=== PATIENT | male | born 1950 | race Caucasian/White ===

== ENCOUNTER 2021-06-22 10:52 | Day surgery (SDC) | payer BC ==
[2021-06-22] MEDS ORDERED: LACTATED RINGERS 1,000 ML IV ONE ×2 (11:59→13:13)
[2021-06-22] MEDS ORDERED: fentaNYL 250 MCG/5 ML VIAL ONE (12:33)
[2021-06-22] MEDS ORDERED: MIDAZOLAM 2 MG/2 ML VIAL ONE ×2 (12:33→12:51)
[2021-06-22 13:47] VITALS: BP 133/81
== END 2021-06-22 10:53 | disposition home or self-care (01) ==
LOC: SDS 10:52
PROVIDERS: ATTEND Surgery
DX: Z12.11 Encounter for screening for malignant neoplasm of colon (principal); Z86.010 Personal history of colon polyps; K64.8 Other hemorrhoids; Z90.79 Acquired absence of other genital organ(s)
CPT/HCPCS: G0105; J3010; J7120